=== PATIENT | male | born 1995 | race African-American/Black ===

== ENCOUNTER 2022-04-19 09:12 | Inpatient (IN) | payer MEDICAID ==
[~2022-04-19] VITALS: Ht 182.9 cm; Wt 76.7 kg
[2022-04-19] MEDS ORDERED: IV NS 0.9% 1,000 ML BAG IV ONE (09:30)
--- NOTE | 2022-04-19 09:35 | NUR ---
BLANCA PAIN WITH N/V RECEIVED PT 26 YRS MALE WALKIN IN C/O ABDOMIN
[2022-04-19] MEDS ORDERED: MORPHINE SULFATE INJ 4 MG/ML DISP.SYRIN ONE (09:38)
--- NOTE | 2022-04-19 09:40 | NUR ---
DR. SERVIN AT BED SIDE
--- NOTE | 2022-04-19 09:45 | NUR ---
BLOOD DROW AND SENT TO LAB
[2022-04-19 09:58] LABS: BASOPHILS # (AUTO) 0.1 K/uL (0.0-0.2); HEMATOCRIT 45 % (39-51); HEMOGLOBIN 15.4 g/dL (13.5-17.5); LYMPHOCYTES # (AUTO) 2.1 K/uL (0.8-4.8); LYMPHOCYTES % (AUTO) 27.2 % (20.0-44.0); MEAN CORPUSCULAR HGB CONC 34 g/dl (31.0-36.0); MEAN CORPUSCULAR VOLUME 88 fL (80-96); MONOCYTES # (AUTO) 0.9 K/uL (0.1-1.30); NEUTROPHILS # (AUTO) 4.4 K/uL (1.8-8.9); NEUTROPHILS % (AUTO) 57.8 % (43.0-81.0); PLATELET COUNT (AUTO) 303 K/uL (150-450); RED BLOOD CELL COUNT(AUTO) 5.14 MIL/uL (4.5-6.0); WHITE BLOOD COUNT (AUTO) 7.6 K/uL (4.3-11.0)
[2022-04-19] MEDS ORDERED: LORAZEPAM INJ 2 MG/ML VIAL ONE ×2 (09:58→14:35)
[2022-04-19] MEDS ORDERED: LORAZEPAM INJ 2 MG/ML VIAL IV ONE (10:00)
[2022-04-19] MEDS ORDERED: MORPHINE SULFATE INJ 2 MG/ML DISP.SYRIN IV ONE (10:00)
--- NOTE | 2022-04-19 10:03 | NUR ---
TAKEN TO CT VIA [facility]
--- NOTE | 2022-04-19 10:14 | NUR ---
RESTING AND ASLEEPY AT THIS TIME
[2022-04-19] MEDS ORDERED: HYDROMORPHONE MDV 1 MG in IV D5W 50 ML IV STA (10:38)
[2022-04-19] MEDS ORDERED: HYDROMORPHONE 1 MG/1 ML DISP.SYRIN ONE ×2 (10:43→14:21)
[2022-04-19] MEDS ORDERED: HYDROMORPHONE 1 MG/1 ML DISP.SYRIN IV STA ×2 (10:45→14:22)
[2022-04-19 11:06] LABS: ALBUMIN 4.2 g/dL (3.4-5.0); CREATININE 1.1 mg/dL (0.6-1.3); POTASSIUM 3.1 mmol/L (3.5-5.1); TOTAL PROTEIN, SERUM 8.2 g/dL (6.4-8.2)
--- NOTE | 2022-04-19 11:21 | NUR ---
inserted NGT FR #18 NO DIFFECULTY
--- NOTE | 2022-04-19 11:21 | NUR ---
nNGT SADI STRICKLAND FR # 18
--- NOTE | 2022-04-19 11:32 | NUR ---
DRINING BROWNISH THICK SECREACTION
--- NOTE | 2022-04-19 11:58 | NUR ---
WARREN MARVIN [phone] Addendum: 04/19/22 at 1253 by [facility]*
[2022-04-19] MEDS ORDERED: Z GUARD REMEDY 4 OZ OINT TP PRN (12:00)
[2022-04-19] MEDS ORDERED: ACETAMINOPHEN 325 MG TABLET PO PRN (12:00)
[2022-04-19] MEDS ORDERED: IV NS 0.9% 1,000 ML IV PRN (12:00)
[2022-04-19] MEDS ORDERED: ONDANSETRON HCL/PF 4 MG/2 ML VIAL IVP PRN (12:00)
[2022-04-19] MEDS ORDERED: ZOLPIDEM TARTRATE 5 MG TABLET PO PRN (12:00)
[2022-04-19] MEDS ORDERED: MAG HYDROX/AL HYDROX/SIMETH 30 ML UDC PO PRN (12:00)
[2022-04-19] MEDS ORDERED: MAGNESIUM HYDROXIDE 30 ML UDC PO PRN (12:00)
[2022-04-19 12:01] LABS: BILIRUBIN,DIRECT 0.1 mg/dL (0.0-0.2); BILIRUBIN,TOTAL 0.4 mg/dL (0.2-1.0)
[2022-04-19] MEDS ORDERED: POTASSIUM CL. PREMIX PERIPHER. 50 ML ONE ×3 (12:23→14:21)
--- NOTE | 2022-04-19 12:53 | NUR ---
CALLED SURGERY DR. [facility] [phone]
[2022-04-19] MEDS: POTASSIUM CL. PREMIX PERIPHER. 50 ML IV SCH ×7 (13:01→19:33)
--- NOTE | 2022-04-19 13:45 | NUR ---
per lab the patient is covid positive. Dr Xiao aware.
[2022-04-19] MEDS ORDERED: ONDANSETRON HCL/PF 4 MG/2 ML VIAL IV STA (14:22)
[2022-04-19] MEDS ORDERED: LORAZEPAM INJ 2 MG/ML VIAL IV STA (14:22)
[2022-04-19] MEDS ORDERED: ONDANSETRON HCL/PF 4 MG/2 ML VIAL ONE (14:34)
--- NOTE | 2022-04-19 14:52 | NUR ---
AUGIE FOR TELMETRY ROOM
[2022-04-19] MEDS ORDERED: MORPHINE SULFATE INJ 2 MG/ML DISP.SYRIN IV PRN (15:30)
--- NOTE | 2022-04-19 15:43 | NUR ---
GOT BED 103
--- NOTE | 2022-04-19 15:55 | NUR ---
HAND OFF TO PHAN .CHUCK RN TO ROOM 103
--- NOTE | 2022-04-19 16:07 | NUR ---
ngt out put 100 ml brownish color + vomiting 100ml brownish color
--- NOTE | 2022-04-19 17:00 | NUR ---
REPORT RECEIVED FROM ER NURSE.PT ARRIVED TO ROOM 103 VIA STRETCHER FROM ER. PT IN PAIN 03/29. PT ORIENTED TO ROOM, USE OF CALL LOPEZ. POLICIES AND PROCEDURES EXPLAINED. PT VERBALIZED UNDERSTANDING. A/O X 3-4. ON ROOM AIR. O2 SAT AT 98%. PT HAS AN IV ON RT HAND. NEEDS ATTENDED. WILL ENDORSE TO NEXT SHIFT NURSE FOR CONTINUITY OF CARE.
[2022-04-19] MEDS ORDERED: NA PHOS,M-B/NA PHOS,DI-BA 1 EA ENEMA RC ONE (18:00)
--- NOTE | 2022-04-19 19:00 | NUR ---
rn notes Received endorsement from ute garcia day shift fleet enema was not given d/t patient refuse the medication .pts on ngt connected to low intermittent suction . pts v/s stable afebrile able to make needs on room air sating 97%pts is alert oriented x4 able to make needs known , with iv heplock on right ac g#18 intact and patent with ivf ns at 100 cc/hr infusing well all needs attended too call light within reach will continue to monitor pts .
[2022-04-19 20:00] VITALS: BP 95/54
--- NOTE | 2022-04-19 22:00 | NUR ---
ms rn notes spoke to pts explain to him the fleet enema order if he can it ,before the xray of abdomen he said hes willing to take in the morning .spoke to [facility] he said they will do the small bowel through in am ,
--- NOTE | 2022-04-20 00:41 | NUR ---
RN NOTES patient agitated, yelling and screaming at primary RN. Security was called; wanted to go AMA. Signed AMA form; notified nikita Rojashousekeeping assistant but wanted MD to be called since patient is covid positive, Message sent to Dr. Avilez.
--- NOTE | 2022-04-20 00:50 | NUR ---
ms rn notes Pts is so upset and wants to go AMA explain r/b still he wants to leave MANUFACTURING TEACHER дмитрий made aware ,production machine shop supervisor paris made aware . pts signs AMA FORM .
--- NOTE | 2022-04-20 01:03 | NUR ---
ms garcia notes Pts left the hospital via AMA at 0152 hrs in stable condition ambulatory. iv heplock and ngt removed ,escorted by senior application security consultant . Addendum: 04/20/22 at 0147 by DUNIA GARZON RN PTS LEFT THE HOSPITAL AT 0052 HRS NOT 0152HRS
== END 2022-04-20 01:49 | disposition left against medical advice (07) | DRG 247 ==
LOC: ER 09:18 → TRANSITION 12:37 → MEDSG1 15:45
PROVIDERS: ADMIT Family Medicine; ATTEND Family Medicine
DX: K56.609 Unspecified intestinal obstruction, unspecified as to partial versus complete obstruction (principal); U07.1 COVID-19; E87.1 Hypo-osmolality and hyponatremia; E87.6 Hypokalemia; R73.9 Hyperglycemia, unspecified; E86.9 Volume depletion, unspecified; K59.09 Other constipation
CPT/HCPCS: 36415; 80048-TC; 80076-TC; 83690-TC; 85025-TC; 87081-TC; A4217; G0378; J1170; J2060; J2270; J2405; J3480; J7030; J7050